=== PATIENT | male | born 1945 | race Caucasian/White ===

== ENCOUNTER 2016-11-27 15:24 | Inpatient (IN) | payer MEDICARE ==
[~2016-11-27] VITALS: Ht 167.6 cm; Wt 81.2 kg
[~2016-11-27 15:24] MED LIST: ACET-97 PO; ALLO300T46 PO; AMLO5TAB2 PO; ASPI-275 PO; ATOR20TA PO; BUPR150T8 PO; CHOL5000 PO; CYAN25003 SL; FEXO-106 PO; FOLI1TAB18 PO; Iron PO; METH2.5T PO; MONT10TA23 PO; NAPR500T5 PO; RABE20TA5 PO; VIT1CAPS8 PO
[2016-11-27 15:47] VITALS: BP 136/45; PULSE 71; RESP 17; O2SAT 96
--- NOTE | 2016-11-27 15:56 | ED.REPORT ---
HPI-Chest Pain 40 and Over Date of Service Nov 27, 2016 ED Provider: Sheryl Blancas MD 71 year old male with a history of HTN, CAD S/p CABG who presents to the ED via EMS due to intermittent sharp chest pains since yesterday that last for a few seconds. Today he had chest pain that lasted for 2.5 hours. He called EMS who gave him nitro. His symptoms resolved after nitro. Nothing exacerbates the pain. This pain was similar to previous heart attack which was 3 year ago. Pt denies SOB, nausea, arm pain, and diaphoresis. Additionally, he denies fever, chills, cough, abd pain and N/V/D. 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 Nursing Notes Stated Complaint: CHEST PAIN Chief Complaint: Chest Pain Nursing Notes Reviewed: Yes Allergies: Coded Allergies: hydrochlorothiazide (Verified Adverse Reaction, Intermediate, RASH, ) oxycodone (Verified Adverse Reaction, Intermediate, Hallucinations, ) oxycodone HCl (Verified Adverse Reaction, Intermediate, Hallucinations, ) quinapril HCl (Verified Adverse Reaction, Intermediate, cough, 04/13/15) Uncoded Allergies: Fentanyl patch adhesive (Allergy, Intermediate, 11/17/11) Scheduled ([Iron]) 27 MG PO DAILY Allopurinol (Allopurinol) 300 Mg Tablet 300 MG PO DAILY Amlodipine (Amlodipine) 5 Mg Tablet 10 MG PO DAILY Aspirin (Aspirin) 325 Mg Tablet 325 MG PO BID Atorvastatin (Lipitor) 20 Mg Tablet 20 MG PO DAILY Bupropion ER (Wellbutrin SR) 150 Mg Tablet.er 150 MG PO DAILY Cholecalciferol (Vitamin D3) (Vitamin D3) 5,000 Unit Capsule 10,000 UNIT PO HS Clobetasol Propionate (Clobetasol Propionate) 0.05 % Gary 59 ML TP BID Cyanocobalamin (Vitamin B-12) (Vitamin B-12) 2,500 Mcg Tab.subl 2,500 MCG SL HS Folic Acid (Folic Acid) 1 Mg Tablet 1 MG PO daily except Methotrexate Sodium (Methotrexate) 2.5 Mg Tablet 10 MG PO every monday Montelukast (Montelukast) 10 Mg Tablet 10 MG PO HS Naproxen (Naproxen) 500 Mg Tablet.dr 500 MG PO BID Omeprazole (Omeprazole) 20 Mg Capsule.dr 20 MG PO BID Vit C/Vit E/Lutein/Min/[place]-3 (Ocuvite Softgel) 1 Each Capsule 1 EACH PO HS Scheduled PRN Acetaminophen (Acetaminophen) 500 Mg Tablet 500 MG PO BID PRN PRN For Pain Hydrocodone-Acetaminophen 5-325 mg (Hydrocodone-Acetaminophen 5-325 mg) 1 Each Tablet 1 TABLET PO Q4H PRN PRN For Pain General Time Seen by MD: 15:55 Chief Complaint Chest pain Hx Obtained From: Patient, EMS Arrived By: Ambulance Sudden in Onset?: Yes Onset Occurred: Yesterday Symptom Duration: Intermittent Location: : Substernal Quality: Sharp Radiation: : Does not radiate Severity: Current: No pain currently Severity: Maximum: Severe Pertinent Negative: Pt denies other symptoms Relieved by: Nitroglycerin - EMS x 1 Pertinent Negative: Exacerbated by nothing Similar Sx Previous: Yes Risk Factors )( CAD Risk Stratification Risk factors reviewed )( TAD Risk Stratification Risk factors reviewed )( PE Risk Stratification Risk factors reviewed Past Medical History 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 History of gout Reports: Coronary artery disease, GERD, Hyperlipidemia, Hypertension Past Surgical History RCA stent February 2014 Most recent cath 05/07/2014 revealed three-vessel disease and patient transferred to [place] for CABG Neck surgery x 1, Back surgery 4 Right knee surgery Right inguinal hernia repair Cholecystectomy Prostate surgery Reports: CABG Smoking History Former Smoker Social History Alcohol Use: Denies alcohol use Drug Use: Denies drug use Review of Systems Basic Review of Systems Eyes: Vision NL, No discharge ENT: Hearing NL, No pain, No nasal congestion, No pharyngeal pain Constitutional: Denies: Chills, Fever Respiratory: Denies: Non-productive cough, Shortness of breath Cardiovascular: Reports: Chest pain, Denies: Edema, Palpitations GI: Denies: Abdominal pain, Diarrhea, Nausea, Vomiting Musculoskeletal: Denies: Back pain, Extremity pain Skin: Denies Diaphoresis, Denies Rash Neurologic: Denies: Change LOC, Headache Complete sys rev & neg: except as marked. Physical Exam Initial Vital Signs Vital Signs (First) Date Time Temp Pulse Resp B/P Pulse Ox O2 Delivery O2 Flow Rate FiO2 11/27/16 15:47 36.8 71 17 136/45 96 Room Air Initial VS: Reviewed, Vital signs normal Head / Eyes: Atraumatic, Normocephalic, PERRL ENT: Mucous membranes moist, Conjunctiva normal, No scleral icterus Neck: Supple, Non-tender, Full range of motion Extremities: Vascular intact, Neuro intact Skin: Warm, Dry, No cyanosis Neurologic: Alert, Oriented, Nonfocal Psychiatric: Mood/affect normal, Behavior normal, Normal thought content General/Constitutional: Awake, Alert, No acute distress, Well appearing Respiratory / Chest: Breath sounds NL, Breath sounds = bilat, No respiratory distress, No rales, No rhonchi, No wheezing, No stridor, No chest tenderness Cardiovascular: Heart rate NL, Regular rhythm, Heart sounds NL, No murmurs, Peripheral circulation NL, Pulses = bilaterally Abdomen: Soft, Non-tender Interpretation & Diagnostics Lab Results Interpretation Result Diagram: 11/27/16 1618 11/27/16 1618 Test 11/27/16 16:18 White Blood Count 6.3th/mm3 (3.8-10.1) Red Blood Count 4.10mil/mm3 (4.40-5.80) Hemoglobin 14.1g/dL (13.8-17.2) Hematocrit 40.2% (41.0-50.0) Mean Corpuscular Volume 98.0fL (81-100) Mean Corpuscular Hemoglobin 34.4pg (27.0-35.0) Mean Corpuscular Hemoglobin Concent 35.1% (32.0-37.0) Red Cell Distribution Width 12.9% (12.3-15.4) Platelet Count 186bil/L (150-400) Neutrophils (%) (Auto) 67.2% (40-74) Lymphocytes (%) (Auto) 18.7% (14-46) Monocytes (%) (Auto) 9.7% (4-12) Eosinophils (%) (Auto) 3.8% (0-5) Basophils (%) (Auto) 0.3% (0-3) Sodium Level 143mEq/L (134-144) Potassium Level 3.3mEq/L (3.5-5.2) Chloride Level 105mEq/L (97-108) Carbon Dioxide Level 25mmol/L (18-29) Blood Urea Nitrogen 18mg/dL (8-27) Creatinine 0.77mg/dL (0.76-1.27) Estimat Glomerular Filtration Rate 106mL/min (>59) Glucose Level 105mg/dL (60-99) Calcium Level 8.7mg/dL (8.5-10.1) Magnesium Level 1.7mg/dL (1.6-2.6) Total Bilirubin 0.5mg/dL (0.0-1.2) Aspartate Amino Transf (AST/SGOT) 31U/L (0-50) Alanine Aminotransferase (ALT/SGPT) 26U/L (0-44) Alkaline Phosphatase 77U/L (25-160) Troponin T < 0.010ug/L (0.0-0.011) Total Protein 6.5g/dL (6.4-8.4) Albumin 3.6g/dL (3.4-5.0) General Lab Results Interp 1: Labs reviewed ECG Interpretation ECG Interpretation: LAD IVCD. ST depression in I and aVL that is different than ECG on 04/08/15. Time: 15:52 Interpreted by: ED physician Normal ECG Interpretation: Normal rate (62), Normal sinus rhythm, Normal intervals ECG Interpretation: Slightly improved ST changes Time: 17:57 Interpreted by: ED physician Normal ECG Interpretation: Normal rate (69) X-Ray Chest Interpretation Chest Xray Interpretation: IMPRESSION: Acute disease is not seen a semiupright portable chest. Dictated by: Adolfo Poon M.D. on 11/27/2016 at 16:06 View: Portable, 1 view Interpretation / Wet Read by: Interpret - Radiologist Re-Eval/Medical Decision Med Decision/Clinical Course This is a high risk cardiac patient with significant EKG changes. He is now pain-free. Admitted for further evaluation. Other differential diagnoses considered were pneumonia, persistent pain, and pulmonary embolus. Time of Eval: 17:46 Patient Status: Condition unchanged Re-Evaluation/Progress Note: Pt. rechecked and ready for admit. Pt. understands and agrees with plan. All questions have been addressed at this time. Consultation : Referral / Consult Name: Nessa Campuzano MD Consulted With: Hospitalist Call Returned at: 17:45 Surveillance Investigator: Will see patient, Agrees with eval, Agrees with plan, Accepts admit Counseled Regarding: Diagnosis, Lab results, Need for admission Discharge & Departure Primary Impression: Chest pain Chest pain type: unspecified Qualified Code: R07.9 - Chest pain, unspecified Disposition: ADMITTED TO HOSPITAL Discharge Condition All VS Reviewed: Yes Condition: Stable Referrals: Avni Gavin MD (PCP) Andrew Attestation Portions of this note were transcribed by Alana Cantu and Concepcion Zarco. I, Dr. Blancas personally performed the history, physical exam and medical decision- making; I reviewed and confirmed the accuracy of the information in the transcribed note. Signed by: Alana Cantu and Andrew Davis, 11/27/2016 and 1746. copies to: Avni Gavin MD, Jena M MD Nov 27, 2016 15:56 Alana Cantu Nov 27, 2016 16:12 Angelica Zarco [Concepcion] Nov 27, 2016 17:46
[2016-11-27] MEDS ORDERED: Nitroglycerin 2% 1 Gm Ointment TOPICAL ONE (16:05)
[2016-11-27] MEDS ORDERED: HYDR-4003 PO (16:06)
[2016-11-27] MEDS ORDERED: OMEP20CA11 PO (16:06)
[2016-11-27] MEDS ORDERED: CLOB59SP3 TP (16:06)
--- NOTE | 2016-11-27 16:08 | DRSVH ---
PROCEDURE: X-RAY CHEST ONE VIEW, PORTABLE ([id number]) INDICATIONS: CP TECHNIQUE: One view of the chest was acquired. COMPARISON: [facility], , CHEST 1VW (PORTABLE), 04/13/2015, 11:54. FINDINGS: Surgical changes and devices: panel monitor leads are seen over the chest. Previous anterior cervic al spine surgery has been performed. There are densities overlying the midline of the chest suggestin g sternal surgery and replacement of the sternotomy wires. Lungs and pleura: No pleural effusions or pneumothorax. Lungs are clear. Mediastinum: Mediastinal contours appear normal. Heart size is normal. Bones and chest wall: No suspicious bony lesions. Overlying soft tissues appear unremarkable. IMPRESSION: Acute disease is not seen a semiupright portable chest. Dictated by: Adolfo Poon M.D. on 11/27/2016 at 16:06 Approved by: Adolfo Poon M.D. on 11/27/2016 at 16:06
[2016-11-27] MEDS ORDERED: ACET-171 PO (16:18)
[2016-11-27] MEDS ORDERED: ALLO300T2 PO (16:18)
[2016-11-27] MEDS ORDERED: ASPI325T32 PO (16:18)
[2016-11-27 16:24] VITALS: BP 131/70; PULSE 81; RESP 14; O2SAT 96
[2016-11-27 16:29] LABS: BASOPHILS % (AUTO) 0.3 % (0-3); EOSINOPHILS % (AUTO) 3.8 % (0-5); MONOCYTES % (AUTO) 9.7 % (4-12); Mean Corpuscular Hemoglobin 34.4 pg (27.0-35.0); NEUTROPHILS % (AUTO) 67.2 % (40-74); Platelet Count 186 bil/L (150-400)
[2016-11-27 16:53] LABS: TROPONIN T < 0.010 ug/L (0.0-0.011)
[2016-11-27 17:03] LABS: Magnesium 1.7 mg/dL (1.6-2.6)
[2016-11-27] MEDS: Lactated Ringer's 1,000 ML IV SCH (18:26)
[2016-11-27] MEDS ORDERED: Alum-Mag Hydrox-Simeth 30 mL Suspension PO PRN (18:30)
[2016-11-27] MEDS ORDERED: Ondansetron 2 mg/mL 2 mL Inj IVPUSH PRN (18:30)
[2016-11-27 18:55] VITALS: BP 134/66; PULSE 81; O2SAT 92
[2016-11-27] MEDS ORDERED: 0.9% Sodium Chloride 1,000 ML IV SCH (18:58)
[2016-11-27 18:59] VITALS: BP 134/66; PULSE 81; RESP 14; O2SAT 92
[2016-11-27] MEDS ORDERED: Atropine 1 mg/10 mL (Code) Syringe IVPUSH PRN (19:00)
[2016-11-27] MEDS ORDERED: Senna-Docusate 8.6-50 mg Tablet PO PRN (19:00)
[2016-11-27] MEDS ORDERED: Polyethylene Glycol (PEG) 17 Gm Powder PO PRN (19:00)
[2016-11-27] MEDS ORDERED: _HYDROcodone/APAP 5-325 mg Tablet PO PRN (19:05)
[2016-11-27 19:14] VITALS: BP 126/69; PULSE 70; RESP 18; O2SAT 96
[2016-11-27] MEDS: Clobetasol Prop 0.05% 15 Gm Ointment TOPICAL SCH (20:30)
[2016-11-27 20:35] LABS: Creatine Kinase 356 U/L (21-232); Magnesium 1.6 mg/dL (1.6-2.6)
[2016-11-27 21:00] LABS: TROPONIN T < 0.010 ug/L (0.0-0.011)
[2016-11-27] MEDS: KETOROLAC EYE LEFT_EYE SCH (21:40)
[2016-11-27] MEDS: [UNRECOGNIZED DRUG - OTHER] LEFT_EYE SCH (21:41)
[2016-11-27] MEDS ORDERED: Potassium Chloride 20 mEq SR Tablet PO ONE (22:05)
--- NOTE | 2016-11-27 22:35 | PCM.HPMED ---
Subjective Date of Service Nov 27, 2016 Primary Provider: Admitting Physician: Nessa Campuzano MD Primary Care Physician: Avni Gavin MD Attending Physician: Nessa Campuzano MD Chief Complaint: Left chest pain History of Present Illness: This is a 71-year-old male with a history of coronary artery disease. 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 This was similar to his angina/heart attack in 2013. It went away within minutes and so he went to bed. This morning he got up and as he was moving around his home, within just a few minutes, the pain resumed. He then got in his car and was driving his granddaughter to [place] when the pain began again this time it lasted an hour. It does not radiate from the left chest. There is no shortness of breath, palpitations, nausea or abdominal pain. He finally admitted with a pain to his and so they called 911 and on arrival the paramedics gave him a dose of nitroglycerin which took away the pain. By the time he got to the hospital the pain returned and so nitroglycerin was again applied under the tongue and again it was effective. Since then now on the floor with topical nitroglycerin on his pain has not returned. Review of Systems: Positive for chest pain. Negative for shortness breath, palpitations, nausea, vomiting, abdominal pain, seizures, headaches, bleeding, joint pain, new depression, new allergies, loss of hearing. Allergies Coded Allergies: hydrochlorothiazide (Verified Adverse Reaction, Intermediate, RASH, ) oxycodone (Verified Adverse Reaction, Intermediate, Hallucinations, ) oxycodone HCl (Verified Adverse Reaction, Intermediate, Hallucinations, ) quinapril HCl (Verified Adverse Reaction, Intermediate, cough, 04/13/15) Uncoded Allergies: Fentanyl patch adhesive (Allergy, Intermediate, 11/17/11) Home Medications Amlodipine Methotrexate Folate Atorvastatin Bupropion Aspirin Gabapentin Allopurinol PMH Gout Hypertension Hyperlipidemia Coronary artery disease Peripheral neuropathy Lichen planus Depression Occupational lead exposure status post chelation Surgical History CABG Mediastinotomy revision C2-C6 fusion C1-C2 fusion L3-S1 fusion 4 surgeries Cholecystectomy TURP Abdominal hernia surgery Right knee cartilage surgery Family History Family history of emphysema and enlarged heart Social History Hx Alcohol Use: Yes Hx Substance Use: No Hx Tobacco Use: Yes (quit 1979) Smoking Status: Former Smoker Additional Information 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 Exam Vital Signs Vital Sign - Last Date Time Temp Pulse Resp B/P Pulse Ox O2 Delivery O2 Flow Rate FiO2 11/27/16 16:24 81 14 131/70 96 Room Air 11/27/16 15:47 36.8 Exam Alert, oriented 3, no apparent distress. He is quite engaging, direct, bright. Excellent historian. Pupils are equally round and reactive to light and accommodation. Extraocular muscles are intact. Sclera are pink and nonicteric. Throat looks normal. No lymph nodes are felt head, neck, supraclavicular area. There is no thyromegaly. JVD is less than 6 cm No carotid bruits are heard. Heart regular rate and rhythm without murmur. Lungs clear to auscultation bilaterally. Abdomen soft bowel sounds are heard, nontender, no organomegaly. Extremities have no ankle edema. Skin has no rash or jaundice. Neuro exam cranial nerves II through XII test intact. Reflexes are normal. Motor function is 5 out of 5 throughout. Balance is normal. There is no tremor. Lab and Diagnostics Labs Laboratory Tests 72 Hours Test 11/27/16 16:18 11/27/16 20:00 White Blood Count 6.3th/mm3 (3.8-10.1) Red Blood Count 4.10mil/mm3 (4.40-5.80) Hemoglobin 14.1g/dL (13.8-17.2) Hematocrit 40.2% (41.0-50.0) Mean Corpuscular Volume 98.0fL (81-100) Mean Corpuscular Hemoglobin 34.4pg (27.0-35.0) Mean Corpuscular Hemoglobin Concent 35.1% (32.0-37.0) Red Cell Distribution Width 12.9% (12.3-15.4) Platelet Count 186bil/L (150-400) Neutrophils (%) (Auto) 67.2% (40-74) Lymphocytes (%) (Auto) 18.7% (14-46) Monocytes (%) (Auto) 9.7% (4-12) Eosinophils (%) (Auto) 3.8% (0-5) Basophils (%) (Auto) 0.3% (0-3) Sodium Level 143mEq/L (134-144) Potassium Level 3.3mEq/L (3.5-5.2) Chloride Level 105mEq/L (97-108) Carbon Dioxide Level 25mmol/L (18-29) Blood Urea Nitrogen 18mg/dL (8-27) Creatinine 0.77mg/dL (0.76-1.27) Estimat Glomerular Filtration Rate 106mL/min (>59) Glucose Level 105mg/dL (60-99) Calcium Level 8.7mg/dL (8.5-10.1) Magnesium Level 1.7mg/dL (1.6-2.6) 1.6mg/dL (1.6-2.6) Total Bilirubin 0.5mg/dL (0.0-1.2) Aspartate Amino Transf (AST/SGOT) 31U/L (0-50) Alanine Aminotransferase (ALT/SGPT) 26U/L (0-44) Alkaline Phosphatase 77U/L (25-160) Troponin T < 0.010ug/L (0.0-0.011) < 0.010ug/L (0.0-0.011) Total Protein 6.5g/dL (6.4-8.4) Albumin 3.6g/dL (3.4-5.0) Total Creatine Kinase 356U/L (21-232) Creatine Kinase MB 11.8ng/mL (0.0-10.4) Creatine Kinase MB % 3.3% (0.0-5.0) Thyroid Stimulating Hormone (TSH) 1.980uIU/mL (0.450-4.500) Result Diagram: 11/27/16 1618 11/27/16 1618 X-Rays, CTs and MRIs X-RAY CHEST ONE VIEW, PORTABLE ([id number]) INDICATIONS: CP TECHNIQUE: One view of the chest was acquired. COMPARISON: [facility], , CHEST 1VW (PORTABLE), 04/13/2015, 11:54. FINDINGS: Surgical changes and devices: quality assurance monitor leads are seen over the chest. Previous anterior cervical spine surgery has been performed. There are densities overlying the midline of the chest suggesting sternal surgery and replacement of the sternotomy wires. Lungs and pleura: No pleural effusions or pneumothorax. Lungs are clear. Mediastinum: Mediastinal contours appear normal. Heart size is normal. Bones and chest wall: No suspicious bony lesions. Overlying soft tissues appear unremarkable. IMPRESSION: Acute disease is not seen a semiupright portable chest. Dictated by: Adolfo Poon M.D. on 11/27/2016 at 16:06 12-lead ECG Sinus Rythym with LVH. No acute ST or T wave changes. Assessment & Plan Chest Pain/CAD -Topical NTG for now -Discussed rising CK and MB with Dr. Chase. The Troponin remains normal and he is chest pain free. -Plan Echocardiogram and stratification to either repeat heart cath or Sestamibi stress scan depending on symptoms and CKMB/Troponin in the morning -Continue Lipitor, Norvasc, Aspirin, Lovenox Hypertension -Continue Norvasc Peripheral Neuropathy -Continue Gabapentin Gout -Continue Allopurinol Depression -Continue Wellbutrin Hyperlipidemia -Continue Lipitor Asthma -Continue Singulair Lichen planus -Continue Folate and MTX. Fredrick Campuzano MD Resuscitation Status: CPR: Attempt Resuscitation Nessa Campuzano MD Nov 27, 2016 18:58
[2016-11-27 23:24] VITALS: PULSE 73
[2016-11-28] MEDS: Lactated Ringer's 1,000 ML IV SCH ×2 (00:30→14:26)
[2016-11-28] MEDS: Sodium Chloride LOK Flush 10 mL Syringe IVFLUSH SCH ×3 (00:30→16:30)
--- NOTE | 2016-11-28 00:31 | NUR ---
Admit from ED Denies chest pain. VSS. Nitro patch on chest. Admit completed. Critical Lab CKMB 11.[address] Campuzano notified and at bedside. Tele; Sinus 70's with IVCD and PVC's. Independent in room.
[2016-11-28 01:28] VITALS: BP 134/74; PULSE 64; RESP 18; O2SAT 96
[2016-11-28 01:51] LABS: TROPONIN T 0.01 ug/L (0.0-0.011)
[2016-11-28 03:57] LABS: APPEARANCE,URINE CLEAR (CLEAR,HAZY); COLOR,URINE YELLOW (YELLOW); OCCULT BLOOD,URINE NEGATIVE (NEGATIVE); PH,URINE 6.5 (5.0-8.0); UROBILINOGEN,URINE NORMAL (NORMAL)
[2016-11-28 06:19] VITALS: BP 149/78; PULSE 63; RESP 18; O2SAT 96
[2016-11-28 06:59] LABS: BASOPHILS % (AUTO) 0.5 % (0-3); EOSINOPHILS % (AUTO) 6.6 % (0-5); MONOCYTES % (AUTO) 10.5 % (4-12); Mean Corpuscular Hemoglobin 34.5 pg (27.0-35.0); Mean Corpuscular Volume 98.4 fL (81-100); NEUTROPHILS % (AUTO) 54.6 % (40-74); Platelet Count 160 bil/L (150-400)
[2016-11-28 08:00] VITALS: PULSE 68
[2016-11-28] MEDS: Pantoprazole 20 mg ER24 Tablet PO SCH ×2 (08:22→17:40)
[2016-11-28] MEDS: Clobetasol Prop 0.05% 15 Gm Ointment TOPICAL SCH (08:30)
[2016-11-28] MEDS ORDERED: buPROPion SR 150 mg ER12 Tablet PO SCH ×2 (08:30)
[2016-11-28] MEDS ORDERED: Ascorbic Acid 500 mg Tablet PO SCH (08:30)
[2016-11-28 09:56] VITALS: BP 146/80; PULSE 67; RESP 18; O2SAT 96
[2016-11-28] MEDS: [UNRECOGNIZED DRUG - OTHER] LEFT_EYE SCH (10:00)
[2016-11-28] MEDS: KETOROLAC EYE LEFT_EYE SCH (10:00)
--- NOTE | 2016-11-28 10:29 | NUR ---
Social Work Initial Assessment: SW met with patient and at bedside to discuss discharge plan. Patient is a 71 year old male admitted under observation status for chest pain. Patient verified name, address, and contact information. Patient resides in a one story home in [place] with . Patient payer as Marcelosergio Hunter. Patient PCP as MD Gavin, last seen 1 week ago. Patient pharmacy of choice as [facility]. Patient has previous HHC history 2 years ago. Patient has previous SNF history in past, name unknown. Patient uses a walking stick on occasions. Patient states having AD and was encouraged to bring copy in from home. Patient ambulating in room and states being independent with needs. Pending stress test today at 2pm, no anticipated discharge needs. SW to follow. PLAN: Home with , via POV, pending clinical course. No anticipated discharge needs. SW to follow. [place] [facility] Addendum: 11/28/16 at 1035 by VESNA SHAIKH Amended: Links added.
--- NOTE | 2016-11-28 12:43 | DRSVH ---
[facility] [address] [place] [address] Echocardiogram Report Name: KAYLEN AGUIRRE JR Study Date: 11/28/2016 Height: 66 in Hospital Exam Location: [facility] Weight: 179 lb Gender: Male BSA: 1.9 m2 : 1945 Age: 71 yrs BP: 149/78 mmHg Reason For Study: Chest pain Ordering Physician: Performed By: Rowdy Sweeney Referring Physician: Nessa ALICEA Interpretation Summary Normal sinus rhythm. Normal LV size, wall thickness, wall motion and LV systolic function. EF is 55-60%. There is severe LA enlargement; otherwise normal chamber sizes. Aortic valve leaflets are not well seen; there is moderate eccentric aortic regurgitation. There is normal size aortic root and ascending aorta. Otherwise no significant valvular abnormalities. Compared to prior study 04/14/2015 aortic regurgitation got a little bit more severe (from mild to moderate) Procedure: A two-dimensional transthoracic echocardiogram with color flow and Doppler was performed. The study quality was technically good. Comparison is made with the echocardiogram of 04/14/15. The patient was in normal sinus rhythm during the exam. Left Ventricle: The left ventricle is normal in size. There is mild concentric left ventricular hypertrophy. The ejection fraction is estimated to be 55-60%. Left ventricular wall motion is normal. Right Ventricle: The right ventricle is normal in size, thickness and function. Atria: The left atrium is severely dilated. Right atrial size is normal. The interatrial septum is intact with no evidence for an atrial septal defect. Mitral Valve: The mitral valve is grossly normal. There is mild mitral annular calcification. There is trace mitral regurgitation. Aortic Valve: The aortic valve is trileaflet. The aortic valve opens well. There is moderate aortic regurgitation. Tricuspid Valve: The tricuspid valve is not well visualized, but is grossly normal. There is mild tricuspid regurgitation. The right ventricular systolic pressure is estimated at 32 mmHg assuming a right atrial pressure of 3 mm Hg. Pulmonic Valve: The pulmonic valve is not well visualized. Great Vessels: The aortic root is mildly dilated. The ascending aorta is mildly enlarged. The pulmonary artery is not well visualized, but is probably normal size. The IVC is of normal diameter and collapses greater than 50% with a sniff. This suggests a low right atrial pressure of 3 mm Hg. Pericardium/ Pleura There is no pericardial effusion. There is no pleural effusion. MMode/2D Measurements & Calculations LVIDd: 5.3 cm RA long axis LVOT diam: 2.1 cm LVIDs: 3.3 cm LA A2 area: 26.1 cm Ao root diam: 4.3 cm FS: 37.1 % LA A4 area: 23.7 cm RA area asc Aorta Diam IVSd: 1.1 cm LA length (vol) LVPWd: 1.2 cm : 14.7 cm Ao Arch Diam LA vol: 95.5 ml RA vol (Proximal trans.) LA vol index : 33.4 ml RA : 50.0 ml/m2 : 17.5 mm2 LV medina. diameter/BSALV sys. diameter/BSA (cm/m^2): 2.8 (cm/m^2): 1.7 Doppler Measurements & Calculations Ao V2 max MV E max tristian MV E/A: 1.8 TR max tristian : 185.6 cm/sec : 107.6 cm/sec Med Peak E' Tristian : 270.5 cm/sec Ao max P.8 mmHg MV A max tristian TR max PG Ao mean P.6 mmHg : 58.2 cm/sec E/E' med: 24.3 : 29.3 mmHg LVOT Max Tristian Lat Peak E' Tristian PA V2 max : 146.1 cm/sec : 91.6 cm/sec ARJUN(I,D): 2.7 cm E/E' lat: 10.7 PA mean PG sev ratio: 0.75 : 2.1 mmHg MV dec time: 0.18 sec Ao V2 mean LV V1 max PG PA V2 mean : 120.3 cm/sec : 71.0 cm/sec Ao V2 VTI: 37.5 cm LV V1 VTI: 28.3 cmPA pr(Accel) : 30.7 mmHg ARJUN(V,D): 2.8 cm2 ARJUN indexed to BSA E/e' average (cm^2/m^2): 1.4 : 17.5 Reading Physician:12:42 PM
--- NOTE | 2016-11-28 12:48 | PCM.CHPCAR ---
Consult Subjective Date of service Nov 28, 2016 Date of admit Nov 27, 2016 at 17:58 Provider Requesting Consult Primary Care Physician Primary Care Provider: Avni Gavin MD Chief Complaint # Atypical chest pain of unclear mechanism # Coronary artery disease # S/P RCA [place] Angioplaty only / Dr. Roberts 02/2014 # S/P triple CABG 04/2014 # HLD # HTN History of Present Illness Mr. Laurent Amaro Junior is a pleasant 71-year-old male that is clinically followed in the [facility] cardiology department by Dr. Jeremiah Doll. The patient's pertinent cardiac history consists of: coronary artery disease, status post triple CABG (04/2014), HTN, HLD. Cardiology has been consulted to assist in evaluation of the patient's atypical chest pain and abnormal CK and MBs. Today, the patient relates that he is feeling very well. He has not had any additional episodes of chest discomfort. The Nitro-patch has been removed in anticipation of an ETT sestamibi stress test today to evaluate his chest discomfort. Since admission, the patient's troponins have been negative 3 and his EKGs do not give any type of indication of an ACS. The patient was admitted through the [facility] emergency department via EMS on 11/26/2015 with recurrent intermittent sharp ( knifelike) chest pains that had started the day prior to admission. The patient states that his chest pain was similar to what he had experienced prior to his coronary artery bypass grafting surgery in 2013. 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 The Patient relates that initially his chest pain lasted for a less than an hour and resolved spontaneously. He denies any shortness of breath or radiation of the pain. On admission to [facility] he had been experiencing nonexertional left precordial (just lateral to the left nipple) sharp "knifelike" chest pain that lasted for 2.5 hours. He denies taking any form of Nitroglycerin at Home Prior to Admission. He was given a sublingual nitroglycerin that totally resolved his chest discomfort while he was being transferred by ambulance to the [facility] emergency department. The patient had a nitroglycerin patch applied to his chest while he was in the emergency department. He denies any chest pain since that time. The patient denies any exertional component, he denies any activity that exacerbates the pain. This pain was similar to previous heart attack which was 3 year ago. Pt denies SOB, nausea, arm pain, and diaphoresis. Additionally, he denies fever, chills, cough , abd pain and N/V/D. Labs: 11/28/2016 1. CBC: H/H: 13.3/37.9 2. Troponin negative 3, CK 356, MB 11.8 (on admission), CK 321, MB 10.7 (today ) 3. CMP: BUN/creatinine 10/0.57 Current cardiac medications: 1. Amlodipine 10mg 1 po daily 2. Aspirin 325 mg one by mouth daily 3. Atorvastatin 20 mg 1 by mouth daily 4. Enoxaparin 40 mg subcutaneous daily Coronary angiography: 04/2014 1. LM: There was no evidence of significant disease. 2. LAD there are only mild luminal irregularities in the proximal portion. In the midportion there is angiographically an 80% plus stenosis which also involves the ostial third major diagonal artery. The ostium of the third diagonal artery has a 70% stenosis. The distal LAD appears to be diffusely diseased. Actually the third diagonal artery appears to cover more of the anterior segments in comparison to the distal LAD. The first major diagonal artery has a 50% ostial stenosis. The second diagonal artery has a 30-40% ostial stenosis. 3. LCx: Nondominant vessel. In the partial portion aneurysm there are mild luminal irregularities. In the midportion there is estimated 50-60% stenosis. The marginal arteries appear to have no evidence of critical stenosis angiographically. 4. RCA: There appears to be an estimated 70% proximal stenosis that appears to be unchanged compared to previous coronary angiograms pre-PTCA. There is mild to moderate ectatic disease throughout most of the main right coronary artery. The posterior descending artery has no evidence of significant stenosis. The very distal posterolateral branch arteries appear to have significant hemodynamic stenosis within the proximal portion of the last 2 posterolateral branch arteries. The posterior descending artery has no evidence of significant stenosis. The very distal posterolateral branch arteries appear. 2-D echocardiogram: 04/14/2015 There is borderline eccentric left ventricular hypertrophy. Ejection fraction is estimated to be 60-65%. There are no focal wall motion allergies. There is mild aortic regurgitation. The right ventricular systolic function is estimated at 28 mmHg assuming a retrograde pressure 3 mmHg. Compared to the prior echo report of 2013 there is no significant change. Status post triple CABG: [facility] 2013 1. EVAN to the third diagonal coronary artery 2. R SVG to the PDA coronary artery 3. RA to the OM 2 coronary artery Review of Systems Review of Systems HEENT: Head: No headaches, no history of stroke Eyes: Complains of bilateral cataracts awaiting cataract surgery tomorrow ENT: Hearing NL, No pain, No nasal congestion, No pharyngeal pain Constitutional: Denies: Chills, Fever Respiratory: Denies: Non-productive cough, Shortness of breath Cardiovascular: Reports: Chest pain please refer to history of present illness #1, Denies: Edema, Palpitations GI: Denies: Abdominal pain, Diarrhea, Nausea, Vomiting Musculoskeletal: Denies: Back pain, Extremity pain Skin: Denies Diaphoresis, Denies Rash Neurologic: Denies: Change LOC, Headache Complete sys rev & neg: except as marked. PMH Past Medical History #Severe three-vessel [place] coronary artery disease #RCA Angioplasty/ Dr. Roberts / February 2014 #HLD (statin) #HTN #Bilateral cataracts Past Surgical History # Status post triple CABG (05/09/2014) [facility] 1. EVAN to the LAD, 2. RA to the OM 2 and coronary artery 3. R SVG to the PDA coronary artery #Neck surgery x 1 #Back surgery 4 #Right knee surgery #Right inguinal hernia repair #Cholecystectomy #Prostate surgery Scheduled ([Iron]) 27 MG PO DAILY (Reported) Allopurinol (Allopurinol) 300 Mg Tablet 300 MG PO DAILY (Reported) Amlodipine (Amlodipine) 5 Mg Tablet 10 MG PO DAILY Aspirin (Aspirin) 325 Mg Tablet 325 MG PO BID (Reported) Atorvastatin (Lipitor) 20 Mg Tablet 20 MG PO DAILY Bupropion ER (Wellbutrin SR) 150 Mg Tablet.er 150 MG PO DAILY (Reported) Cholecalciferol (Vitamin D3) (Vitamin D3) 5,000 Unit Capsule 10,000 UNIT PO HS ( Reported) Clobetasol Propionate (Clobetasol Propionate) 0.05 % [place] 59 ML TP BID ( Reported) Cyanocobalamin (Vitamin B-12) (Vitamin B-12) 2,500 Mcg Tab.subl 2,500 MCG SL HS (Reported) Folic Acid (Folic Acid) 1 Mg Tablet 1 MG PO daily except (Reported) Methotrexate Sodium (Methotrexate) 2.5 Mg Tablet 10 MG PO every monday ( Reported) Montelukast (Montelukast) 10 Mg Tablet 10 MG PO HS (Reported) Naproxen (Naproxen) 500 Mg Tablet.dr 500 MG PO BID (Reported) Omeprazole (Omeprazole) 20 Mg Capsule.dr 20 MG PO BID (Reported) Vit C/Vit E/Lutein/Min/[place]-3 (Ocuvite Softgel) 1 Each Capsule 1 EACH PO HS ( Reported) Scheduled PRN Acetaminophen (Acetaminophen) 500 Mg Tablet 500 MG PO BID PRN PRN For Pain ( Reported) Hydrocodone-Acetaminophen 5-325 mg (Hydrocodone-Acetaminophen 5-325 mg) 1 Each Tablet 1 TABLET PO Q4H PRN PRN For Pain (Reported) Discontinued Medications Acetaminophen (Acetaminophen) 500 Mg Tablet 500 MG PO BID (Reported) Allopurinol (Zyloprim) 300 Mg Tablet 300 MG PO DAILY (Reported) Aspirin (Ecotrin) 325 Mg Tablet.dr 325 MG PO BID (Reported) Fexofenadine (Fexofenadine) 180 Mg Tablet 180 MG PO DAILY PRN PRN allergies ( Reported) Rabeprazole DR (Aciphex) 20 Mg Tablet.dr 20 MG PO DAILY (Reported) Current Inpatient Medications Current Medications Lactated Ringer's 1,000 ml @ 100 mls/hr Q10H IV; Start 11/27/16 at 18:26 Al Hydrox/Mg Hydrox/Simethicone 30 ml Q6 PRN PO; Start 11/27/16 at 18:30 Ondansetron HCl Dose range: 4 mg to 8 mg Q4H PRN IVPUSH; Start 11/27/16 at 18:30 Acetaminophen 975 mg Q6H PRN PO; Start 11/27/16 at 18:30; Stop 11/28/16 at 09:15 ; Status DC Enoxaparin Sodium 40 mg DAILY SUBQ Last administered on 11/28/16 08:29; Admin Dose 40 MG; Start 11/28/16 at 08:30 Sodium Chloride 10 ml 10 ml TY IVFLUSH; Start 11/28/16 at 00:30 Sodium Chloride 1,000 ml @ 80 mls/hr [id number] IV Last administered on 11/27/16 23:57; Admin Dose 80 MLS/HR; Start 11/27/16 at 18:58 Aspirin 325 mg DAILY PO Last administered on 11/28/16 08:24; Admin Dose 325 MG; Start 11/28/16 at 08:30 Senna 1 tablet BID PRN PO; Start 11/27/16 at 19:00 Polyethylene Glycol 17 gm DAILY PRN PO; Start 11/27/16 at 19:00 Nitroglycerin 0.4 mg Q5MIN PRN SL; Start 11/27/16 at 19:00 Morphine Sulfate 1-5 mg prn pain not relie... Q5M PRN IVPUSH; Start 11/27/16 at 19:00 Atropine Sulfate 0.5 mg Q5MIN PRN IVPUSH; Start 11/27/16 at 19:00 Allopurinol 300 mg DAILY PO Last administered on 11/28/16 08:27; Admin Dose 300 MG; Start 11/28/16 at 08:30 Amlodipine Besylate 10 mg DAILY PO Last administered on 11/28/16 08:27; Admin Dose 10 MG; Start 11/28/16 at 08:30 Atorvastatin Calcium 20 mg DAILY PO Last administered on 11/28/16 08:31; Admin Dose 20 MG; Start 11/28/16 at 08:30 Bupropion HCl 150 mg DAILY PO; Start 11/28/16 at 08:30; Stop 11/28/16 at 08:30; Status DC Folic Acid 1 mg DAILY PO Last administered on 11/28/16 08:25; Admin Dose 1 MG; Start 11/28/16 at 08:30 Acetaminophen/ Hydrocodone Bitart 1 tab Q4H PRN PO; Start 11/27/16 at 19:05; Stop 11/27/16 at 19:13; Status DC Methotrexate 10 mg WEEKLY PO; Start 12/03/16 at 08:30 Montelukast Sodium 10 mg HS PO Last administered on 11/27/16 21:39; Admin Dose 10 MG; Start 11/27/16 at 21:00 Acetaminophen 1-2 TABLETS BID PRN PO; Start 11/27/16 at 19:45 Cholecalciferol 1,000 unit DAILY PO Last administered on 11/28/16 08:28; Admin Dose 1,000 UNIT; Start 11/28/16 at 08:30 Clobetasol Propionate 1 applic BID TOPICAL Last administered on 11/28/16 08:30; Admin Dose 1 APPLIC; Start 11/27/16 at 20:30 Cyanocobalamin 2,500 mcg HS PO Last administered on 11/27/16 21:40; Admin Dose 2 ,500 MCG; Start 11/27/16 at 21:00 Non-Formulary Medication 500 mg BID PO; Start 11/27/16 at 20:30; Stop 11/27/16 at 20:30; Status DC Non-Formulary Medication 20 mg BID PO; Start 11/27/16 at 20:30; Stop 11/27/16 at 20:30; Status DC Ascorbic Acid 500 mg DAILY PO Last administered on 11/28/16 08:27; Admin Dose 500 MG; Start 11/28/16 at 08:30 Ferrous Gluconate 324 mg DAILYWM PO Last administered on 11/28/16 08:22; Admin Dose 324 MG; Start 11/28/16 at 08:00 Naproxen 500 mg BID PO Last administered on 11/28/16 08:26; Admin Dose 500 MG; Start 11/27/16 at 20:30 Pantoprazole 20 mg BIDAC PO Last administered on 11/28/16 08:22; Admin Dose 20 MG; Start 11/28/16 at 07:30 Patient Own Medication 1 drop BID LEFT_EYE Last administered on 11/27/16 21:40; Admin Dose 1 DROP; Start 11/27/16 at 21:20 Patient Own Medication OFLOXACIN EYE DROPS 0.3% ... BID LEFT_EYE Last administered on 11/27/16 21:41; Admin Dose 1 DROP; Start 11/27/16 at 21:22 Bupropion HCl 150 mg BID PO Last administered on 11/28/16 08:27; Admin Dose 150 MG; Start 11/28/16 at 08:30 Allergies: Coded Allergies: hydrochlorothiazide (Verified Adverse Reaction, Intermediate, RASH, 11/28/16 ) oxycodone (Verified Adverse Reaction, Intermediate, Hallucinations, 11/28/16 ) oxycodone HCl (Verified Adverse Reaction, Intermediate, Hallucinations, 11/28/16) quinapril HCl (Verified Adverse Reaction, Intermediate, cough, 11/28/16) Uncoded Allergies: Fentanyl patch adhesive (Allergy, Intermediate, 11/17/11) Social History Hx Alcohol Use: YesAlcoholic Drinks Per Day: 2 drinks per nightHx Substance Use: NoHx Tobacco Use: Yes (quit 1979) Smoking Status: Former Smoker Exam Vital Signs Vital Sign - Last Date Time Temp Pulse Resp B/P Pulse Ox O2 Delivery O2 Flow Rate FiO2 11/28/16 09:56 36.8 67 18 146/80 96 Room Air Objective Gen.: Awake alert and oriented in no acute distress sitting comfortably in front of me in bed Eyes: Bilateral cataracts, nonicteric Neck: Supple, nontender, no thyromegaly, no JVD or HJR. Respiratory: Clear to auscultation, there is reproducible chest tenderness just lateral to the left nipple in the left cardial chest. Cardiovascular: Regular rate and rhythm, normal S1, S2. No S3 no murmurs clicks or gallops are auscultated. GI: Soft, flat, nontender without masses, liver, kidneys, spleen are No palpable , positive bowel sounds all 4 quadrants. No rebound or guarding. Musculoskeletal: All 4 extremities are present and mobile. Skin: Warm dry good turgor masses rashes or lesions are noted . Lab and Diagnostics Result Diagram: 11/28/1662411/28/16624 Assessment & Plan Assessment # Atypical chest pain of unclear etiology / CAD / Triple CABG: The patient's chest pain is atypical and appears to be reproducible with palpation in the left precordium just lateral to the left nipple. There is no history of chest injury and there is no evidence of trauma on physical exam. The patient's 12-lead EKG does not appear to be indicative of ACS. The patient' s serial troponins have been negative, however, his CK and MB have been elevated. In lieu of the patient's atypical chest pain and his history of severe 3 vessel coronary artery disease and subsequent triple CABG (2013) we will need to evaluate him for any ongoing ischemic heart disease. Recommendation : 1. Exercise treadmill stress test with sestamibi to evaluate for any potential ischemic component to his chest pain. 2. Continue current medical management 3. Agree with discontinuation of the Nitropatch prior to the exercise treadmill stress test. 4. If the ETT stress test shows ischemia the patient will require coronary angiography. # HLD: Stable, continue current medical management #HTN: Stable, continue current medical management VTE Mechanical Devices: Intermittant Pneumatic CD Resuscitation Status: CPR: Attempt Resuscitation Will Grady PA-C Nov 28, 2016 12:48
--- NOTE | 2016-11-28 15:30 | NUR ---
Stress test Pt returned from stress test, VSS, no complains of increased chest discomfrt/pressure, SOB or N/V. Pt is hoping to be discharged soon. Call light within reach, will continue to monitor.
--- NOTE | 2016-11-28 16:35 | DRSVH ---
PROCEDURE: 1 DAY TREADMILL STRESS TEST Rest and exercise myocardial perfusion SPECT with gated imaging and ejection fraction RADIOPHARMACEUTICAL: 8.24 mCi Tc-99m tetrafosmin IV at rest and 24.5 mCi Tc-99m tetrafosmin IV at pea k exercise. [id number] was performed. INDICATIONS: 71-year-old male with recurrent left chest pain, and history of coronary artery bypass g rafting and myocardial infarction. TECHNIQUE: Radiopharmaceutical was injected at peak stress test, and also at rest. SPECT images wer e obtained. SPECT myocardial perfusion images were displayed in short axis, horizontal long axis, an d vertical long axis views. Gated images were reviewed using [employer] software. COMPARISON: [place], [place], MYOCARD PERF SPECT SINGLE, 04/14/2015, 11:00. [place], MYOCARD PERF SPECT SINGLE, 03/06/2014, 14:20. CARDIAC STRESS: A standard Angel treadmill exercise tolerance test was performed by the patient under the supervision of an attending staff. The patient exercised for 3 minutes and 40 seconds; functional aerobic impai rment (LALA) is +38 %. Hemodynamic data: There is normal blood pressure and heart rate response to exercise stress. Patien t achieved 89% of maximum predicted heart rate at peak exercise. Symptoms: Patient denied chest pain during exercise. EKG: No diagnostic EKG changes of ischemia; occasional premature atrial contractions and rare premat ure ventricular contractions are present. FINDINGS: Raw data: There is good myocardial labeling by radiotracer. No significant motion artifacts. Left ventricle function: Gated images demonstrate normal left ventricle wall thickening. No segment al wall motion abnormality. No transient ischemic dilation. The left ventricle resting end-diastoli c volume is 125 mL. Left ventricle stress ejection fraction is 40%; normal values are above 45%. Myocardial perfusion: There is mildly decreased tracer uptake throughout the inferior wall, 6 between stress and resting images. Findings persist on corresponding stress prone imaging as well. Remainder of the left ventricle myocardium demonstrates normal tracer uptake. IMPRESSION: 1. Probably normal myocardial perfusion study for ischemia. Decreased uptake within the inferior wall appears fixed between stress and resting images, and may represent persistent diaphragmatic attenuat ion artifact. Myocardial infarction is considered less likely in the absence of any segmental wall mo tion abnormalities. 2. Borderline enlarged left ventricle cavity size, as well as mildly decreased left ventricle ejectio n fraction. No segmental wall motion abnormalities. 3. Expected hemodynamic response to exercise stress testing, with below average exercise capacity for age. PQRS ATTESTATIONS: Measure 322 - Is this imaging test primarily performed on a low-risk surgery patient for preoperative evaluation within 30 days preceding their low-risk non-cardiac surgery? Low-risk surgery is defined as cardiac or myocardial infarction less than 1%, including (but not limited to) endoscopic pr ocedures, superficial procedures, cataract surgery, and excisional breast surgery: Answer: No Measure 323 - Is this imaging test performed primarily for the monitoring of an asymptomatic patient who had percutaneous coronary intervention on the visit date or within 2 years of the visit date? An swer: No Measure 324 - Is this imaging test performed primarily for the initial detection and risk assessment on an asymptomatic, low coronary heart disease patient? Low CHD risk definition = clinicians should consider the maximum number of available patient factors used to estimate risk based on [place] (A TP III criteria), typically age, gender, diabetes, smoking status, and use of blood pressure medicati on, and integrate age appropriate estimates for missing elements, such as LDL or standard blood press ure. Answer: No Dictated by: Noel Pimentel M.D. on 11/28/2016 at 16:32 Approved by: Noel Pimentel M.D. on 11/28/2016 at 16:32
--- NOTE | 2016-11-28 16:55 | PCM.DIMED ---
Discharge Instructions Date of Service Nov 28, 2016 Dates of Hospitalization Nov 27, 2016 at 17:58 Discharge Diagnosis Discharge Diagnosis chest pain, likely musculoskeletal Test Results PROCEDURE: 1 DAY TREADMILL STRESS TEST Rest and exercise myocardial perfusion SPECT with gated imaging and ejection fraction RADIOPHARMACEUTICAL: 8.24 mCi Tc-99m tetrafosmin IV at rest and 24.5 mCi Tc-99m tetrafosmin IV at peak exercise. [id number] was performed. INDICATIONS: 71-year-old male with recurrent left chest pain, and history of coronary artery bypass grafting and myocardial infarction. TECHNIQUE: Radiopharmaceutical was injected at peak stress test, and also at rest. SPECT images were obtained. SPECT myocardial perfusion images were displayed in short axis, horizontal long axis, and vertical long axis views. Gated images were reviewed using [employer] software. COMPARISON: [place], [place], MYOCARD PERF SPECT SINGLE, 04/14/2015, 11:00. [place], MYOCARD PERF SPECT SINGLE, 03/06/2014, 14:20. CARDIAC STRESS: A standard Angel treadmill exercise tolerance test was performed by the patient under the supervision of an attending staff. The patient exercised for 3 minutes and 40 seconds; functional aerobic impairment (LALA) is +38 %. Hemodynamic data: There is normal blood pressure and heart rate response to exercise stress. Patient achieved 89% of maximum predicted heart rate at peak exercise. Symptoms: Patient denied chest pain during exercise. EKG: No diagnostic EKG changes of ischemia; occasional premature atrial contractions and rare premature ventricular contractions are present. FINDINGS: Raw data: There is good myocardial labeling by radiotracer. No significant motion artifacts. Left ventricle function: Gated images demonstrate normal left ventricle wall thickening. No segmental wall motion abnormality. No transient ischemic dilation. The left ventricle resting end-diastolic volume is 125 mL. Left ventricle stress ejection fraction is 40%; normal values are above 45%. Myocardial perfusion: There is mildly decreased tracer uptake throughout the inferior wall, 6 between stress and resting images. Findings persist on corresponding stress prone imaging as well. Remainder of the left ventricle myocardium demonstrates normal tracer uptake. IMPRESSION: 1. Probably normal myocardial perfusion study for ischemia. Decreased uptake within the inferior wall appears fixed between stress and resting images, and may represent persistent diaphragmatic attenuation artifact. Myocardial infarction is considered less likely in the absence of any segmental wall motion abnormalities. 2. Borderline enlarged left ventricle cavity size, as well as mildly decreased left ventricle ejection fraction. No segmental wall motion abnormalities. 3. Expected hemodynamic response to exercise stress testing, with below average exercise capacity for age. PQRS ATTESTATIONS: Measure 322 - Is this imaging test primarily performed on a low-risk surgery patient for preoperative evaluation within 30 days preceding their low-risk non- cardiac surgery? Low-risk surgery is defined as cardiac or myocardial infarction less than 1%, including (but not limited to) endoscopic procedures, superficial procedures, cataract surgery, and excisional breast surgery: Answer : No Measure 323 - Is this imaging test performed primarily for the monitoring of an asymptomatic patient who had percutaneous coronary intervention on the visit date or within 2 years of the visit date? Answer: No Measure 324 - Is this imaging test performed primarily for the initial detection and risk assessment on an asymptomatic, low coronary heart disease patient? Low CHD risk definition = clinicians should consider the maximum number of available patient factors used to estimate risk based on [place] ( ATP III criteria), typically age, gender, diabetes, smoking status, and use of blood pressure medication, and integrate age appropriate estimates for missing elements, such as LDL or standard blood pressure. Answer: No Dictated by: Noel Pimentel M.D. on 11/28/2016 at 16:32 Approved by: Noel Pimentel M.D. on 11/28/2016 at 16:32 Diet Low fat, Low Sodium, Heart Healthy Activity No restrictions Patient Instructions You were hospitalized with chest pain, underwent stress test, result was negative for heart attack. Please follow up with your doctor regularly, continue active lifestyle with Heart Healthy program. Of note, you are cleared for exercise program. Follow-up Provider: Julito Gavin MD Follow-up with PCP in: 2 weeks Sergey Lamar MD Nov 28, 2016 16:55
--- NOTE | 2016-11-28 17:47 | NUR ---
Discharge Pt discharged at this time, VSS, No complains of chest discomfrt/pressure. All belongings and home medications gathered and returned to pt. IV D/Cd intact. Discharge packet printed and reviewed with pt and spouse. Pt declined offer of wheelchair, escorted from [facility] by SALES ENGINEER, steady gait. Pt to be driven home in private vehicle driven by spouse.
--- NOTE | 2016-11-28 21:11 | CONS ---
[address] [address] CONSULTATION REPORT PATIENT: KAYLEN AGUIRRE : 1945 MR#: [id number] ADMIT: 11/27/2016 JOB ID: [id number] DATE OF SERVICE: 11/28/2016 I saw and examined the patient. Please see Will Grady's notes for detail. IMPRESSION: 1. Noncardiac chest discomfort. 2. Status post coronary artery bypass surgery x3, utilizing EVAN to third diagonal, saphenous vein graft to posterior descending, and radial graft to the second obtuse marginal in April 2014. 3. Hypertension. 4. Hypercholesterolemia. 5. Moderate aortic regurgitation. 6. Left ventricular ejection fraction 40%. PLAN: I informed the patient and his regarding the results of the stress sestamibi. His exercise capacity is below average for the people at his age. He should continue to exercise in the healthy heart program. He could be discharged from the hospital and follow up with Dr. Doll within the next couple weeks.
--- NOTE | 2016-12-01 13:01 | PCM.DC.MED ---
Discharge Summary Date of Service Nov 28, 2016 Dates of Hospitalization Date of Hospital Admission Nov 27, 2016 at 17:58 Date of Discharge: Nov 28, 2016 Providers: Admitting Physician: Nessa Campuzano MD Primary Care Physician: Avni Gavin MD Attending Physician: Nessa Campuzano MD Diagnosis at Time of Discharge Diagnosis at Time of Discharge chest pain, likely musculoskeletal Consultations Cardiology Procedures XRay, CTs & MRIs X-RAY CHEST ONE VIEW, PORTABLE ([id number]) INDICATIONS: CP TECHNIQUE: One view of the chest was acquired. COMPARISON: [facility], CHEST 1VW (PORTABLE), 04/13/2015, 11:54. FINDINGS: Surgical changes and devices: dual rate supervisor leads are seen over the chest. Previous anterior cervical spine surgery has been performed. There are densities overlying the midline of the chest suggesting sternal surgery and replacement of the sternotomy wires. Lungs and pleura: No pleural effusions or pneumothorax. Lungs are clear. Mediastinum: Mediastinal contours appear normal. Heart size is normal. Bones and chest wall: No suspicious bony lesions. Overlying soft tissues appear unremarkable. IMPRESSION: Acute disease is not seen a semiupright portable chest. Dictated by: Adolfo Poon M.D. on 11/27/2016 at 16:06 ECG 12 Lead Sinus Rythym with LVH. No acute ST or T wave changes. Other Diagnostics PROCEDURE: 1 DAY TREADMILL STRESS TEST Rest and exercise myocardial perfusion SPECT with gated imaging and ejection fraction RADIOPHARMACEUTICAL: 8.24 mCi Tc-99m tetrafosmin IV at rest and 24.5 mCi Tc-99m tetrafosmin IV at peak exercise. Wde-[id number]-[id number] was performed. INDICATIONS: 71-year-old male with recurrent left chest pain, and history of coronary artery bypass grafting and myocardial infarction. TECHNIQUE: Radiopharmaceutical was injected at peak stress test, and also at rest. SPECT images were obtained. SPECT myocardial perfusion images were displayed in short axis, horizontal long axis, and vertical long axis views. Gated images were reviewed using AutoQUANT software. COMPARISON: [place] [place], MYOCARD PERF SPECT SINGLE, 04/14/2015, 11:00. [place], MYOCARD PERF SPECT SINGLE, 03/06/2014, 14:20. CARDIAC STRESS: A standard [place] treadmill exercise tolerance test was performed by the patient under the supervision of an attending staff. The patient exercised for 3 minutes and 40 seconds; functional aerobic impairment (LALA) is +38 %. Hemodynamic data: There is normal blood pressure and heart rate response to exercise stress. Patient achieved 89% of maximum predicted heart rate at peak exercise. Symptoms: Patient denied chest pain during exercise. EKG: No diagnostic EKG changes of ischemia; occasional premature atrial contractions and rare premature ventricular contractions are present. FINDINGS: Raw data: There is good myocardial labeling by radiotracer. No significant motion artifacts. Left ventricle function: Gated images demonstrate normal left ventricle wall thickening. No segmental wall motion abnormality. No transient ischemic dilation. The left ventricle resting end-diastolic volume is 125 mL. Left ventricle stress ejection fraction is 40%; normal values are above 45%. Myocardial perfusion: There is mildly decreased tracer uptake throughout the inferior wall, 6 between stress and resting images. Findings persist on corresponding stress prone imaging as well. Remainder of the left ventricle myocardium demonstrates normal tracer uptake. IMPRESSION: 1. Probably normal myocardial perfusion study for ischemia. Decreased uptake within the inferior wall appears fixed between stress and resting images, and may represent persistent diaphragmatic attenuation artifact. Myocardial infarction is considered less likely in the absence of any segmental wall motion abnormalities. 2. Borderline enlarged left ventricle cavity size, as well as mildly decreased left ventricle ejection fraction. No segmental wall motion abnormalities. 3. Expected hemodynamic response to exercise stress testing, with below average exercise capacity for age. PQRS ATTESTATIONS: Measure 322 - Is this imaging test primarily performed on a low-risk surgery patient for preoperative evaluation within 30 days preceding their low-risk non- cardiac surgery? Low-risk surgery is defined as cardiac or myocardial infarction less than 1%, including (but not limited to) endoscopic procedures, superficial procedures, cataract surgery, and excisional breast surgery: Answer : No Measure 323 - Is this imaging test performed primarily for the monitoring of an asymptomatic patient who had percutaneous coronary intervention on the visit date or within 2 years of the visit date? Answer: No Measure 324 - Is this imaging test performed primarily for the initial detection and risk assessment on an asymptomatic, low coronary heart disease patient? Low CHD risk definition = clinicians should consider the maximum number of available patient factors used to estimate risk based on [place] ( ATP III criteria), typically age, gender, diabetes, smoking status, and use of blood pressure medication, and integrate age appropriate estimates for missing elements, such as LDL or standard blood pressure. Answer: No Dictated by: Noel Pimentel M.D. on 11/28/2016 at 16:32 Approved by: Noel Pimentel M.D. on 11/28/2016 at 16:32 Brief History Mr. Laurent Amaro Junior is a pleasant 71-year-old male that is clinically followed in the [facility] cardiology department by Dr. Jeremiah Doll. The patient's pertinent cardiac history consists of: coronary artery disease, status post triple CABG (04/2014), HTN, HLD. Cardiology has been consulted to assist in evaluation of the patient's atypical chest pain and abnormal CK and MBs. Today, the patient relates that he is feeling very well. He has not had any additional episodes of chest discomfort. The Nitro-patch has been removed in anticipation of an ETT sestamibi stress test today to evaluate his chest discomfort. Since admission, the patient's troponins have been negative 3 and his EKGs do not give any type of indication of an ACS. The patient was admitted through the [facility] emergency department via EMS on 11/26/2015 with recurrent intermittent sharp ( knifelike) chest pains that had started the day prior to admission. The patient states that his chest pain was similar to what he had experienced prior to his coronary artery bypass grafting surgery in 2013. 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 The Patient relates that initially his chest pain lasted for a less than an hour and resolved spontaneously. He denies any shortness of breath or radiation of the pain. On admission to [facility] he had been experiencing nonexertional left precordial (just lateral to the left nipple) sharp "knifelike" chest pain that lasted for 2.5 hours. He denies taking any form of Nitroglycerin at Home Prior to Admission. He was given a sublingual nitroglycerin that totally resolved his chest discomfort while he was being transferred by ambulance to the [facility] emergency department. The patient had a nitroglycerin patch applied to his chest while he was in the emergency department. He denies any chest pain since that time. The patient denies any exertional component, he denies any activity that exacerbates the pain. This pain was similar to previous heart attack which was 3 year ago. Pt denies SOB, nausea, arm pain, and diaphoresis. Additionally, he denies fever, chills, cough , abd pain and N/V/D. Labs: 11/28/2016 1. CBC: H/H: 13.3/37.9 2. Troponin negative 3, CK 356, MB 11.8 (on admission), CK 321, MB 10.7 (today ) 3. CMP: BUN/creatinine 10/0.57 Current cardiac medications: 1. Amlodipine 10mg 1 po daily 2. Aspirin 325 mg one by mouth daily 3. Atorvastatin 20 mg 1 by mouth daily 4. Enoxaparin 40 mg subcutaneous daily Coronary angiography: 04/2014 1. LM: There was no evidence of significant disease. 2. LAD there are only mild luminal irregularities in the proximal portion. In the midportion there is angiographically an 80% plus stenosis which also involves the ostial third major diagonal artery. The ostium of the third diagonal artery has a 70% stenosis. The distal LAD appears to be diffusely diseased. Actually the third diagonal artery appears to cover more of the anterior segments in comparison to the distal LAD. The first major diagonal artery has a 50% ostial stenosis. The second diagonal artery has a 30-40% ostial stenosis. 3. LCx: Nondominant vessel. In the partial portion aneurysm there are mild luminal irregularities. In the midportion there is estimated 50-60% stenosis. The marginal arteries appear to have no evidence of critical stenosis angiographically. 4. RCA: There appears to be an estimated 70% proximal stenosis that appears to be unchanged compared to previous coronary angiograms pre-PTCA. There is mild to moderate ectatic disease throughout most of the main right coronary artery. The posterior descending artery has no evidence of significant stenosis. The very distal posterolateral branch arteries appear to have significant hemodynamic stenosis within the proximal portion of the last 2 posterolateral branch arteries. The posterior descending artery has no evidence of significant stenosis. The very distal posterolateral branch arteries appear. 2-D echocardiogram: 04/14/2015 There is borderline eccentric left ventricular hypertrophy. Ejection fraction is estimated to be 60-65%. There are no focal wall motion allergies. There is mild aortic regurgitation. The right ventricular systolic function is estimated at 28 mmHg assuming a retrograde pressure 3 mmHg. Compared to the prior echo report of 2013 there is no significant change. Status post triple CABG: [facility] 2013 1. EVAN to the third diagonal coronary artery 2. R SVG to the PDA coronary artery 3. RA to the OM 2 coronary artery Hospital Course Chest Pain/CAD, pt was started on asa/plavix/bb/high-intensity statin, pt underwent 1 DAY TREADMILL STRESS TEST, SPECT, which showed normal perfusion, TTE showed normal EF and wall motions, pt remained chest pain free, it seems that chest pain is musculoskletal origin given reproducible pain by palpation, elevated CK but normal troponinsx3, no positive ischemic work-ups. Pt deemed safe for d/c by Cardiology. Given chronic NSAID use, it was strongly recommended to limit the use of naproxen only when it's needed to avoid adverse effect from penitentiary use on cardiovascular, renal function. Underlying medical problems as below were stable during hospitalization. Hypertension -Continue Norvasc Peripheral Neuropathy -Continue Gabapentin Gout -Continue Allopurinol Depression -Continue Wellbutrin Hyperlipidemia -Continue Lipitor Asthma -Continue Singulair Lichen planus -Continue Folate and MTX. Exam Vital Signs (Last) Date Time Temp Pulse Resp B/P Pulse Ox O2 Delivery O2 Flow Rate FiO2 11/28/16 09:56 36.8 67 18 146/80 96 Room Air Exam NAD, MMM, no JVD RRR, nl s1 s2 no mrg CTAB no w,c S,ND,NT,BS+ warm, no edema, pulses 2/2 Test 11/27/16 16:18 11/27/16 20:00 11/28/16 01:11 11/28/16 03:00 Total Bilirubin 0.5mg/dL (0.0-1.2) Aspartate Amino Transf (AST/SGOT) 31U/L (0-50) Alanine Aminotransferase (ALT/SGPT) 26U/L (0-44) Alkaline Phosphatase 77U/L (25-160) Total Protein 6.5g/dL (6.4-8.4) Albumin 3.6g/dL (3.4-5.0) Magnesium Level 1.6mg/dL (1.6-2.6) Thyroid Stimulating Hormone (TSH) 1.980uIU/mL (0.450-4.500) Total Creatine Kinase 321U/L (21-232) Creatine Kinase MB 10.7ng/mL (0.0-10.4) Creatine Kinase MB % 3.3% (0.0-5.0) Troponin T 0.010ug/L (0.0-0.011) Urine Color Yellow (YELLOW) Urine Appearance Clear (CLEAR,HAZY) Urine pH 6.5 (5.0-8.0) Urine Specific [place] 1.010 (1.003-1.035) Urine Protein Negativemg/dL (NEG,TRACE) Urine Glucose (UA) Negativemg/dL (NEGATIVE) Urine Ketones Negativemg/dL (NEGATIVE) Urine Occult Blood Negative (NEGATIVE) Urine Nitrite Negative (NEGATIVE) Urine Bilirubin Negative (NEGATIVE) Urine Urobilinogen Normalmg/dL (NORMAL) Urine Leukocyte Esterase Negative (NEGATIVE) Urine RBC 0-2/hpf (0-2) Urine WBC 0-5/hpf (0-5) Urine Epithelial Cells Occasional/hpf (NONE-MOD) Urine Crystals None seen (NONE SEEN) Urine Bacteria None/hpf (NONE-FEW) Urine Hyaline Casts None/lpf (NONE) Urine Granular Casts None seen (NONE SEEN) Urine Waxy Casts None seen (NONE SEEN) Urine Red Blood Cell Casts None seen (NONE SEEN) Urine White Blood Cell Casts None seen (NONE SEEN) Urine Mucus None seen (None Seen) Urine Trichomonas None seen (NONE SEEN) Urine Yeast None (NONE SEEN) Urine Culture Reflexed Not indicated Test 11/28/16 06:25 White Blood Count 4.1th/mm3 (3.8-10.1) Red Blood Count 3.85mil/mm3 (4.40-5.80) Hemoglobin 13.3g/dL (13.8-17.2) Hematocrit 37.9% (41.0-50.0) Mean Corpuscular Volume 98.4fL (81-100) Mean Corpuscular Hemoglobin 34.5pg (27.0-35.0) Mean Corpuscular Hemoglobin Concent 35.1% (32.0-37.0) Red Cell Distribution Width 12.9% (12.3-15.4) Platelet Count 160bil/L (150-400) Neutrophils (%) (Auto) 54.6% (40-74) Lymphocytes (%) (Auto) 27.3% (14-46) Monocytes (%) (Auto) 10.5% (4-12) Eosinophils (%) (Auto) 6.6% (0-5) Basophils (%) (Auto) 0.5% (0-3) Sodium Level 141mEq/L (134-144) Potassium Level 4.2mEq/L (3.5-5.2) Chloride Level 103mEq/L (97-108) Carbon Dioxide Level 28mmol/L (18-29) Blood Urea Nitrogen 10mg/dL (8-27) Creatinine 0.57mg/dL (0.76-1.27) Estimat Glomerular Filtration Rate 150mL/min (>59) Glucose Level 107mg/dL (60-99) Calcium Level 8.6mg/dL (8.5-10.1) Triglycerides Level 138mg/dL (0-149) Cholesterol Level 123mg/dL (100-199) LDL Cholesterol, Calculated 8.400mg/dL (0-99) VLDL Cholesterol 27.600mg/dL HDL Cholesterol 87mg/dL (>39) Cholesterol/HDL Ratio 1.41 (0.0-4.4) Discharge Medications Discharge Medications ([Iron]) 27 MG PO DAILY (Reported) Allopurinol (Allopurinol) 300 Mg Tablet 300 MG PO DAILY (Reported) Amlodipine (Amlodipine) 5 Mg Tablet 10 MG PO DAILY Prescribed by: HITESH HERNANDEZ MD Aspirin (Aspirin) 325 Mg Tablet 325 MG PO BID (Reported) Atorvastatin (Lipitor) 20 Mg Tablet 20 MG PO DAILY Prescribed by: HITESH HERNANDEZ MD Bupropion ER (Wellbutrin SR) 150 Mg Tablet.er 150 MG PO DAILY (Reported) Cholecalciferol (Vitamin D3) (Vitamin D3) 5,000 Unit Capsule 10,000 UNIT PO HS ( Reported) Clobetasol Propionate (Clobetasol Propionate) 0.05 % [place] 59 ML TP BID ( Reported) Cyanocobalamin (Vitamin B-12) (Vitamin B-12) 2,500 Mcg Tab.subl 2,500 MCG SL HS (Reported) Folic Acid (Folic Acid) 1 Mg Tablet 1 MG PO daily except (Reported) Methotrexate Sodium (Methotrexate) 2.5 Mg Tablet 10 MG PO every monday ( Reported) Montelukast (Montelukast) 10 Mg Tablet 10 MG PO HS (Reported) Naproxen (Naproxen) 500 Mg Tablet.dr 500 MG PO BID (Reported) Omeprazole (Omeprazole) 20 Mg Capsule.dr 20 MG PO BID (Reported) Vit C/Vit E/Lutein/Min/[place]-3 (Ocuvite Softgel) 1 Each Capsule 1 EACH PO HS ( Reported) As needed Acetaminophen (Acetaminophen) 500 Mg Tablet 500 MG PO BID PRN PRN For Pain ( Reported) Hydrocodone-Acetaminophen 5-325 mg (Hydrocodone-Acetaminophen 5-325 mg) 1 Each Tablet 1 TABLET PO Q4H PRN PRN For Pain (Reported) Followup Plan Disposition: home Discharge Diet: Low fat, Low Sodium, Heart Healthy Discharge Activity: No restrictions Patient Instructions You were hospitalized with chest pain, underwent stress test, result was negative for heart attack. Please follow up with your doctor regularly, continue active lifestyle with Heart Healthy program. Of note, you are cleared for exercise program. Follow-up Provider: Julito Gavin MD Follow-up with PCP in: 2 weeks Time spent 65min Sergey Lamar MD Dec 01, 2016 13:01
== END 2016-11-28 17:45 | disposition home or self-care (01) | DRG 313 ==
LOC: EDBD 15:24 → EDUNIT# 15:24 → SED 15:24 → OBSVTOIN 17:58 → MPC 17:58
PROVIDERS: ADMIT Family Medicine; ATTEND Family Medicine
DX: R07.89 Other chest pain (principal); I10 Essential (primary) hypertension; I25.10 Atherosclerotic heart disease of native coronary artery without angina pectoris; Z95.1 Presence of aortocoronary bypass graft; E78.5 Hyperlipidemia, unspecified; K21.9 Gastro-esophageal reflux disease without esophagitis; Z87.891 Personal history of nicotine dependence; G62.9 Polyneuropathy, unspecified; M10.9 Gout, unspecified; J45.909 Unspecified asthma, uncomplicated; L43.9 Lichen planus, unspecified

== ENCOUNTER 2017-06-23 07:10 | Day surgery (SDC) | payer MEDICARE ==
[~2017-06-23] VITALS: Ht 167.6 cm; Wt 76.2 kg
[~2017-06-23 07:10] MED LIST changes: +0.9% Sodium Chloride 1,000 ML IV SCH; -ACET-97 PO; +ALLO300T2 PO; -ALLO300T46 PO; +AMLO10TA3 PO; -AMLO5TAB2 PO; -ASPI-275 PO; +ASPI325T32 PO; -CHOL5000 PO; +CHOL500062 PO; +CYAN250010 PO; -CYAN25003 SL; +HYDR-3090 PO; -Iron PO; +Lactated Ringer's 1,000 ML IV SCH; -MONT10TA23 PO; -NAPR500T5 PO; +OMEP40CA36 PO; +OXYB5TAB10 PO; -RABE20TA5 PO; +Sodium Chloride LOK Flush 10 mL Syringe IV PRN; +TADA20TA PO; +fentaNYL-PF 50 mCg/mL 2 mL Inj IVPUSH PRN
[2017-06-23] MEDS ORDERED: Propofol 10,000 mCg/mL 20 mL Inj ONE (07:11)
[2017-06-23 07:44] VITALS: BP 176/89; PULSE 62; RESP 12; O2SAT 98
[2017-06-23 08:33] VITALS: BP 148/65; PULSE 62; RESP 14; O2SAT 98
[2017-06-23] MEDS ORDERED: Lactated Ringer's 1,000 ML IV SCH (08:40)
[2017-06-23 08:42] VITALS: BP 174/89; PULSE 66; RESP 12; O2SAT 99
--- NOTE | 2017-06-23 08:42 | PCM.ANEP1 ---
Post Anesthesia PACU Phase 1 Assessment Vital Signs Vital Signs Date Time Temp Pulse Resp B/P Pulse Ox O2 Delivery O2 Flow Rate FiO2 06/23/17 08:33 36.8 62 14 148/65 98 Room Air 06/23/17 07:44 62 12 176/89 98 Room Air Anesthetic Administered: MAC Level of Alertness: Awake, talking DUDLEY's with Equal Strength: Yes Pain: No Nausea or Vomiting: No CV Function & Hydration Stable: Yes Airway Device: N/A Oxygen Delivery: Room Air Lungs: Clear to Auscultation, Normal Air Movement Dermatome Level: Full Sensation PACU Phase 2 Assessment Complications: No Follow up Care: N/A Patient Instructions Provided: N/A Iker Wooten MD Jun 23, 2017 08:42
--- NOTE | 2017-06-23 08:42 | PCM.HPANE ---
Patient Data Surgeon Admitting Provider: Attending Provider:Lenin Mcguire MD Primary Care Physician:Avni Gavin MD Other Provider: Reason for Visit Colon Ca Screening Ht/WT & BMI Body Mass Index Allergies Coded Allergies: fentanyl (Verified Allergy, Unknown, 06/23/17) hydrochlorothiazide (Verified Adverse Reaction, Intermediate, RASH, 06/23/17 ) oxycodone (Verified Adverse Reaction, Intermediate, Hallucinations, 06/23/17 ) oxycodone HCl (Verified Adverse Reaction, Intermediate, Hallucinations, 06/23/17) quinapril HCl (Verified Adverse Reaction, Intermediate, cough, 11/28/16) Uncoded Allergies: Fentanyl patch adhesive (Allergy, Intermediate, 11/17/11) Past Anesthesia History Anesthesia History: Positive for:: Anesthesia Reactions (extreme nausea "it was the old one, not the new one."), Denies:: Abnormal Airway, Difficult Intubation, Fam Anesthesia Reaction, Fam Malignant Hypertherm, Malignant Hyperthermia Diabetes History Hx Diabetes?: No MRSA MRSA: No Medications Reported Medications Bupropion ER (Wellbutrin SR)150 Mg Tablet.er150 Mg PO BID Ref 0 06/21/17 Cholecalciferol (Vitamin D3) (Vitamin D3)5,000 Unit Tab.rapdis2,500 Unit PO BID 06/21/17 Cyanocobalamin (Vitamin B-12) (Vitamin B12)2,500 Mcg Tablet2,500 Mcg PO DAILY 06/21/17 Oxybutynin Chloride 5 Mg Tablet5 Mg PO BID Ref 0 06/21/17 Omeprazole 40 Mg Capsule.dr40 Mg PO DAILY Ref 0 06/21/17 Vit C/Vit E/Lutein/Min/[place]-3 (Ocuvite Softgel)1 Each Capsule1 Each PO DAILY 06/21/17 Methotrexate Sodium (Methotrexate)2.5 Mg Tablet5 Mg PO 06/21/17 Hydrocodone-Acetaminophen 5-300 mg 1 Each Tablet1 Tablet PO Q4H PRN For Pain Ref 0 06/21/17 Folic Acid 1 Mg Tablet1 Mg PO DAILY 30 Days 06/21/17 Fexofenadine 180 Mg Lcmkcx127 Mg PO BID 06/21/17 Atorvastatin (Lipitor)20 Mg Soscer81 Mg PO DAILY Ref 0 06/21/17 Aspirin 325 Mg Ourznt250 Mg PO DAILY #1 BOTTLE 06/21/17 Amlodipine 10 Mg Zpfitc56 Mg PO DAILY Ref 0 06/21/17 Allopurinol 300 Mg Htkugk891 Mg PO DAILY Ref 0 06/21/17 Discontinued Reported Medications Tadalafil (Cialis)20 Mg Nqriil02 Mg PO PRN PRN ED Ref 0 As directed by physician. 06/21/17 Aspirin 325 Mg Lavaeu508 Mg PO BID #1 BOTTLE 11/27/16 Allopurinol 300 Mg Evbefv445 Mg PO DAILY Ref 0 11/27/16 Acetaminophen 500 Mg Hghpys472 Mg PO BID PRN For Pain 11/27/16 Omeprazole 20 Mg Capsule.dr20 Mg PO BID Ref 0 11/27/16 Clobetasol Propionate 0.05 % Spray59 Ml TP BID 11/27/16 Hydrocodone-Acetaminophen 5-325 mg 1 Each Tablet1 Tablet PO Q4H PRN For Pain Ref 0 11/27/16 [Iron] No Conflict Check27 Mg PO DAILY 04/13/15 Vit C/Vit E/Lutein/Min/[place]-3 (Ocuvite Softgel)1 Each Capsule1 Each PO HS 04/13/15 Cyanocobalamin (Vitamin B-12) (Vitamin B-12)2,500 Mcg Tab.subl2,500 Mcg SL HS 04/13/15 Cholecalciferol (Vitamin D3) (Vitamin D3)5,000 Unit Dnckrvf98,000 Unit PO HS 04/13/15 Montelukast 10 Mg Glgqnq80 Mg PO HS 30 Days Ref 0 04/13/15 Naproxen 500 Mg Tablet.dr500 Mg PO BID Ref 0 04/13/15 Methotrexate Sodium (Methotrexate)2.5 Mg Nzwpjf07 Mg PO every monday04/13/15 Folic Acid 1 Mg Tablet1 Mg PO daily except 30 Days 04/13/15 Bupropion ER (Wellbutrin SR)150 Mg Tablet.er150 Mg PO DAILY 30 Days Ref 0 04/13/15 Discontinued Scripts Atorvastatin (Lipitor)20 Mg Wzdikb83 Mg PO DAILY #30 TABLET Ref 1 Prov:Lenin Lan MD 03/08/14 Amlodipine 5 Mg Cssfks00 Mg PO DAILY #30 TABLET Ref 1 Prov:Lenin Lan MD 03/08/14 History History of ENT Problems?: Yes HEENT History: Positive for:: Cataracts (in left eye, small one) Denies:: Abnormal Airway Difficult Intubation Dysphagia Glaucoma Hearing Problem Sinus Problem TMJ Denture Type: None Teeth Condition: Within Normal Limits Hx of Heart Problems?: Yes Cardiovascular History: Positive for:: Cardiac Surgery (cabg april 2014, heart cath) Chest Pain Hypertension Irregular Heartbeat (junctional bradycardia 11/17/11) Denies:: AICD Abdominal Aortic Aneurism Atrial Fibrillation Congestive Heart Failure Coronary Artery Disease Edema Heart Murmur Pacemaker Peripheral Vascular Rheumatic Fever Thrombophlebitis Valvular Heart Disease Hx of Respiratory Problem?: Yes Respiratory History: Positive for:: Pneumonia (x2) Denies:: Asthma COPD Chest Surgery Cough Dyspnea Emphysema Hemoptysis Oxygen Administration Pulmonary Embolism Tuberculosis Use of C-PAP Machine Use of Inhalers / NEBS Hx Neurologic Problems?: Yes Neurological History: Denies:: Alzheimer's Disease CVA Dementia Dizziness Headaches Multiple Sclerosis Parkinson's Disease Peripheral Neuropathy Seizures TIA Hx of GI Problems?: Yes Gastrointestinal History: Denies:: Cirrhosis Diverticulitis Gall Bladder Disease Gastroesphageal Reflux Gastrointestinal Bleeding Heartburn Hepatitis Hiatal Hernia Liver Disease Rectal Bleeding Hx of Problems?: Yes Genitourinary History: Positive for:: Kidney Stones Denies:: HX of Hemodialysis Urinary Tract Infection HX of Peritoneal Dialysis: No Male Hx: Positive for:: Prostate Problems (TURP) Denies:: Scrotal Mass Testicular Surgery Skin History: Denies:: History Skin Disorders? Pressure Ulcers Hx Musculoskeletal Problems?: Yes (cervical fusion with limited neck mobility) Musculoskeletal History: Positive for:: Back Injury (worse on L) Denies:: Degenerative Joint Fibromyalgia Joint Replacement (rt. meniscus repair) Musculoskeletal Trauma Myasthenia Gravis Osteoarthritis Rheumatoid Arthritis Systemic Lupus Hx of Psycho/Social Problems?: No Psycho Social History: Denies:: Anxiety Bipolar Disorder Hx Depression Suicide Attempt Hx Surgeries?: Yes (cabg,hernia, turp,neck x 2,back x4, gallbladder) Hx Any Other Health Problems?: Yes Other History: Positive for:: Hospitalization (surgery) Denies:: Cancer Endocrine Disease Thyroid Disease History Blood Transfusions: Denies:: Blood Transfuse Reaction Blood Transfusions Hx Diabetes: No Hx Alcohol Use: YesHx Substance Use: No Smoking Status: Former Smoker Have You Smoked inLast 12 mo: No Stop/Bang Risk Assessment Category Category 1A: Patient has history of documented sleep apnea, and HAS NOT received any narcotic, sedative or anesthesia administration during this stay. Category 1B: Patient has history of documented sleep apnea, and HAS received any narcotic , sedative or anesthesia administration during this stay Category 2: Patient has SUSPECTED Obstructive Sleep Apnea, and HAS received any narcotic , sedative or anesthesia administration during this stay. Category 3: Patient has SUSPECTED Obstructive Sleep Apnea and HAS NOT received narcotic, sedative or anesthesia administration during this stay. Category 4: Outpatient in Procedural Areas with known sleep apnea or who screen positive for High Risk via the STOP/BANG questionnaire. Exam Exam General Appearance: Alert, Oriented X3, Cooperative, No Acute Distress HEENT/AIRWAY: MP 2, Neck Movement (cervical fusion with limited neck mobility) , Mouth Opening (3 FBMO) Lungs: Clear to Auscultation, Normal Air Movement Heart: Exam Unremarkable, Regular Rate/Rhythm, No Murmurs/Rubs/Gallops Plan Impression Patient chart reviewed, patient interviewed and anesthestic plan with risks, benefits, and alternatives discussed, and informed consent obtained. NPO per Anesth. Guidelines: Yes ASA Physical Status: ASA3 Severe Disease (cervical fusion with limited neck mobility) Anesthetic Plan: MAC Bene/Risks/Altern/Consents: Yes HP Complete Prior to Induction: Yes Iker Wooten MD Jun 23, 2017 07:27
[2017-06-23 08:49] VITALS: BP 161/87; PULSE 59; RESP 14; O2SAT 96
--- NOTE | 2017-06-23 13:43 | ENDO ---
[address] [address] ENDOSCOPY PROCEDURE PATIENT: KAYLEN AGUIRRE : 1945 MR#: [id number] ADMIT: 06/23/2017 JOB ID: [id number] DATE OF SERVICE: 06/23/2017 TYPE OF OPERATION: Colonoscopy with biopsy. PREOPERATIVE DIAGNOSES: Colorectal cancer. POSTOPERATIVE DIAGNOSIS(ES): 1. Four polyps in total seen; largest size 3 mm in diameter; three in the rectosigmoid, one in the ascending colon, status post removed by cold biopsy forceps. 2. Mild sigmoid diverticulosis. 3. Small internal hemorrhoids. ANESTHESIA: Fentanyl monitored anesthesia care. COMPLICATIONS: None. BLOOD LOSS: Minimal. DESCRIPTION OF PROCEDURE: After risks and benefits explained to the patient, informed consent was obtained. After anesthesia administered, colonoscope was inserted from rectum to cecum. Mucosa carefully examined. Prep of the patient was excellent. After the procedure was done, the scope withdrawn and procedure terminated. FINDINGS: Upon inspection of the anus, no masses, hemorrhoids, ulcers, or fissures that were seen. Throughout the entire examination there were four polyps total; one seen in the ascending colon and three in rectosigmoid; largest size 3 mm diameter removed by cold biopsy forceps. There is mild sigmoid diverticulosis that was also seen and retroflexion showed small internal hemorrhoids. IMPRESSION: 1. Four polyps total, largest size 3 mm in diameter, removed by cold biopsy forceps. 2. Mild sigmoid diverticulosis. 3. Small internal hemorrhoids. RECOMMENDATIONS: Await pathology results. If three or more tubular adenoma polyps, repeat colonoscopy in three years. If less than three tubular adenoma polyps, repeat colonoscopy in five years.
--- NOTE | 2017-06-26 18:08 | PATH ---
SURGICAL PATHOLOGY Attending Physician:Lenin Mcguire MD CASE STATUS: Signed Out PATIENT NAME: KAYLEN AGUIRRE JR PID: [id number] : 1945 DATE COLLECTED:06/23/2017 16:27 SPECIMEN: 1: Colon, Polyp 2: Colon, Polyp CLINICAL HISTORY: 1). RIGHT COLON POLYP X1 2). RECTO-SIGMOID COLON POLYP X3 FINAL DIAGNOSIS: 1.RIGHT COLON POLYP, BIOPSY: TUBULAR ADENOMA. 2.RECTOSIGMOID COLON POLYPS, BIOPSIES: TUBULAR ADENOMA X3, ICD10 D12.6 GROSS DESCRIPTION: The specimen is received in two formalin filled containers labeled with the patient's name. 1). The specimen is labeled "right colon polyp" and consists of a 0.2 x 0.2 x 0.2 CM portion of tissue which is entirely submitted in cassette 1A. 2). The specimen is labeled "rectosigmoid polyps x3" and consists of 3 portions of tissue which aggregate to zero 3 x 0.3 x 0.2 CM. The specimen is entirely submitted in cassette 2A. 06/23/2017DC MICRO DESCRIPTION: See diagnosis. ICD-9 CODES: CPT CODES: 1: 92920 2: 20764 Electronically Signed Out Danny Robledo MD, Ph.D. [facility] [address], [place] [address] Technical component performed at [facility], [address] [place] [address] Ave[address], [place], [address]
== END 2017-06-23 23:59 | disposition home or self-care (01) ==
LOC: END 07:10
PROVIDERS: ATTEND Internal Medicine Gastroenterology
DX: Z12.11 Encounter for screening for malignant neoplasm of colon (principal); D12.2 Benign neoplasm of ascending colon; D12.5 Benign neoplasm of sigmoid colon; K64.8 Other hemorrhoids; K57.30 Diverticulosis of large intestine without perforation or abscess without bleeding; I10 Essential (primary) hypertension; I25.10 Atherosclerotic heart disease of native coronary artery without angina pectoris; N40.1 Benign prostatic hyperplasia with lower urinary tract symptoms; N13.8 Other obstructive and reflux uropathy; Z87.442 Personal history of urinary calculi; Z95.1 Presence of aortocoronary bypass graft; Z79.82 Long term (current) use of aspirin